=== PATIENT | female | born 1975 | race Caucasian/White ===

== ENCOUNTER 2017-02-08 08:16 | Inpatient (IN) | payer MEDICAID, OTHER ==
[~2017-02-08] VITALS: Ht 154.9 cm; Wt 105.2 kg
[2017-02-08] MEDS ORDERED: ONDANSETRON HCL 4MG/2ML VIAL IV STA (08:37)
[2017-02-08] MEDS ORDERED: FAMOTIDINE 20MG/2ML VIAL IV STA (08:37)
[2017-02-08] MEDS ORDERED: MORPHINE SULFATE 4 MG/ML CPJ (NOT FOR IM USE) IV STA (08:37)
[2017-02-08] MEDS ORDERED: SODIUM CHLORIDE 0.9% 1,000 ML IV ONE ×2 (08:37→10:47)
[2017-02-08 09:22] LABS: INR 1.1; PARTIAL THROMBOPLASTIN TIME 20.5 sec (23.4-31.0); PROTHROMBIN TIME 11.6 sec (9.4-11.6)
[2017-02-08 09:25] LABS: BASOPHILS % 0.3 % (0.0-2.0); EOSINOPHILS % 0.2 % (0.0-5.0); HCG SCREEN NEGATIVE; LYMPHOCYTES % 15.5 % (20.0-50.0); MEAN CORPUSCULAR HEMOGLOBIN 29.9 pg (28.0-32.0); MEAN CORPUSCULAR VOLUME 90.3 fL (81.0-99.0); MEAN PLATELET VOLUME 9.2 fl (7.4-10.4); MONOCYTES % 4.4 % (2.0-8.0); NEUTROPHILS % 79.6 % (40.0-76.0); PLATELET 270 x1000/uL (130-400); RED BLOOD CELL COUNT 2.32 mill/uL (4.2-5.4); RED CELL DISTRIBUTION WIDTH 14.5 % (11.6-14.6)
[2017-02-08 09:28] LABS: CARBON DIOXIDE 26 mEq/L (21-32); CHLORIDE 107 mEq/L (98-107); TROPONIN I 0.03 ng/mL (0.00-0.04)
[2017-02-08 09:36] LABS: HEMATOCRIT. 20.9 % (36.0-48.0); HEMOGLOBIN. 6.9 g/dL (12.0-16.0)
[2017-02-08] MEDS ORDERED: PANTOPRAZOLE 80 MG in SODIUM CHLORIDE 0.9% 100 ML IV SCH (11:00)
[2017-02-08] MEDS ORDERED: PANTOPRAZOLE SODIUM 40 MG/VIAL IV ONE (11:00)
[2017-02-08] MEDS: PANTOPRAZOLE 80 MG in SODIUM CHLORIDE 0.9% 100 ML IV SCH ×2 (12:25→19:50)
[2017-02-08] MEDS ORDERED: SIMETHICONE 40 MG/0.6 ML 30ML ONE (14:01)
[2017-02-08] MEDS ORDERED: SODIUM CHLORIDE 0.9% 10ML VIAL ONE (14:01)
[2017-02-08] MEDS ORDERED: FENTANYL CITRATE/PF 50MCG/ML 2ML VIAL ONE (15:36)
[2017-02-08] MEDS ORDERED: MIDAZOLAM HCL 5 MG/5 ML VIAL ONE (15:36)
[2017-02-08] MEDS ORDERED: MIDAZOLAM HCL 2 MG/2 ML VIAL IV PRN (15:52)
[2017-02-08] MEDS ORDERED: FENTANYL CITRATE/PF 50MCG/ML 2ML VIAL IV PRN (15:52)
[2017-02-08] MEDS ORDERED: SODIUM CHLORIDE 0.9% 1,000 ML IV SCH (18:29)
[2017-02-08] MEDS ORDERED: DIPHENHYDRAMINE 50MG/ML VIAL IV PRN (18:30)
[2017-02-08] MEDS ORDERED: DEXT 5%/0.45% NACL 500ML 1,000 ML IV SCH (19:30)
[2017-02-08 20:14] VITALS: BP 110/63
[2017-02-08 21:00] VITALS: BP_SYST 106; BP_SYST 110; BP_DIAS 56; BP_DIAS 63
[2017-02-08] MEDS: PANTOPRAZOLE SODIUM 40 MG/VIAL IV SCH (21:32)
[2017-02-08] MEDS: MORPHINE SULFATE 4 MG/ML CPJ (NOT FOR IM USE) IV PRN (21:32)
[2017-02-08 22:00] VITALS: BP 105/54
[2017-02-08 23:00] VITALS: BP 92/49
[2017-02-08 23:15] LABS: MEAN CORPUSCULAR HEMOGLOBIN 30.8 pg (28.0-32.0); MEAN CORPUSCULAR VOLUME 94.5 fL (81.0-99.0); PLATELET 120 x1000/uL (130-400); RED BLOOD CELL COUNT 2.06 mill/uL (4.2-5.4); RED CELL DISTRIBUTION WIDTH 14.7 % (11.6-14.6)
[2017-02-08 23:19] LABS: HEMATOCRIT 19.5 % (36.0-48.0); HEMOGLOBIN 6.4 g/dL (12.0-16.0)
[2017-02-09] VITALS (27 sets, daily range): BP systolic 90–118; BP diastolic 48–76
[2017-02-09 05:57] LABS: BASOPHILS % 0.3 % (0.0-2.0); EOSINOPHILS % 0.9 % (0.0-5.0); HEMATOCRIT. 26.8 % (36.0-48.0); HEMOGLOBIN. 9.1 g/dL (12.0-16.0); LYMPHOCYTES % 30.7 % (20.0-50.0); MEAN CORPUSCULAR HEMOGLOBIN 30.1 pg (28.0-32.0); MEAN CORPUSCULAR VOLUME 88.6 fL (81.0-99.0); MONOCYTES % 5.5 % (2.0-8.0); NEUTROPHILS % 62.6 % (40.0-76.0); PLATELET 147 x1000/uL (130-400); RED BLOOD CELL COUNT 3.02 mill/uL (4.2-5.4); RED CELL DISTRIBUTION WIDTH 14.1 % (11.6-14.6)
[2017-02-09 07:01] LABS: CARBON DIOXIDE 25 mEq/L (21-32); CHLORIDE 112 mEq/L (98-107)
[2017-02-09] MEDS ORDERED: PANTOPRAZOLE SODIUM 40 MG/VIAL IV SCH (09:00)
[2017-02-09] MEDS: PANTOPRAZOLE SODIUM 40 MG/VIAL IV SCH ×2 (09:51→21:04)
[2017-02-09] MEDS: DEXT 5%/0.45% NACL 1000ML 1,000 ML IV SCH ×2 (10:11→21:05)
[2017-02-09] MEDS: MORPHINE SULFATE 4 MG/ML CPJ (NOT FOR IM USE) IV PRN ×2 (10:33→22:34)
[2017-02-09] MEDS ORDERED: SIMETHICONE 40 MG/0.6 ML 30ML ONE (12:53)
[2017-02-09] MEDS ORDERED: SODIUM CHLORIDE 0.9% 10ML VIAL ONE (12:53)
[2017-02-09] MEDS ORDERED: MIDAZOLAM HCL 5 MG/5 ML VIAL ONE ×2 (13:47→13:48)
[2017-02-09] MEDS ORDERED: FENTANYL CITRATE/PF 50MCG/ML 2ML VIAL ONE (13:48)
[2017-02-09] MEDS ORDERED: MIDAZOLAM HCL 2 MG/2 ML VIAL IV ONE (14:06)
[2017-02-09] MEDS ORDERED: FENTANYL CITRATE/PF 50MCG/ML 2ML VIAL IV ONE (14:07)
[2017-02-09] MEDS ORDERED: OCTREOTIDE ACETATE 100 MCG/ML 1ML IV NR (16:45)
[2017-02-09 17:20] LABS: HEMATOCRIT 21.4 % (36.0-48.0)
[2017-02-09] MEDS ORDERED: OCTREOTIDE ACETATE 50 MCG/ML 1ML IV NR (17:26)
[2017-02-09 17:29] LABS: HEMOGLOBIN 6.9 g/dL (12.0-16.0)
[2017-02-09] MEDS: OCTREOTIDE 1,000 MCG in SODIUM CHLORIDE 0.9% 98 ML IV PRN (17:36)
[2017-02-09 23:12] LABS: HEMATOCRIT 30.7 % (36.0-48.0); HEMOGLOBIN 10.5 g/dL (12.0-16.0)
[2017-02-10] VITALS: BP 104/66
[2017-02-10 04:00] VITALS: BP 99/49
[2017-02-10] MEDS: DEXT 5%/0.45% NACL 1000ML 1,000 ML IV SCH ×2 (06:27→16:26)
[2017-02-10 07:15] LABS: BASOPHILS % 0.6 % (0.0-2.0); EOSINOPHILS % 2.6 % (0.0-5.0); HEMOGLOBIN. 10.3 g/dL (12.0-16.0); LYMPHOCYTES % 30.6 % (20.0-50.0); MEAN CORPUSCULAR HEMOGLOBIN 30.3 pg (28.0-32.0); MEAN CORPUSCULAR VOLUME 88.6 fL (81.0-99.0); MEAN PLATELET VOLUME 8.7 fl (7.4-10.4); MONOCYTES % 7.7 % (2.0-8.0); NEUTROPHILS % 58.5 % (40.0-76.0); PLATELET 144 x1000/uL (130-400); RED BLOOD CELL COUNT 3.38 mill/uL (4.2-5.4); RED CELL DISTRIBUTION WIDTH 14.7 % (11.6-14.6)
[2017-02-10 07:19] LABS: INR 1.1; PARTIAL THROMBOPLASTIN TIME 22.2 sec (23.4-31.0); PROTHROMBIN TIME 10.9 sec (9.4-11.6)
[2017-02-10 07:57] VITALS: BP 98/62
[2017-02-10 08:03] LABS: CARBON DIOXIDE 27 mEq/L (21-32); CHLORIDE 106 mEq/L (98-107)
[2017-02-10 08:06] LABS: HEPATITIS B SURFACE ANTIGEN NEGATIVE
[2017-02-10 08:34] LABS: HEPATITIS B CORE AB IGM NEGATIVE
[2017-02-10 08:36] LABS: HEPATITIS A AB IGM NEGATIVE (NEGATIVE)
[2017-02-10] MEDS: PANTOPRAZOLE SODIUM 40 MG/VIAL IV SCH ×3 (09:29→21:29)
[2017-02-10 12:00] VITALS: BP 101/67
[2017-02-10] MEDS: MORPHINE SULFATE 4 MG/ML CPJ (NOT FOR IM USE) IV PRN ×2 (12:18→21:06)
[2017-02-10 16:00] VITALS: BP 122/63
[2017-02-10 20:00] VITALS: BP 114/61
[2017-02-11] VITALS: BP 109/70
[2017-02-11 04:00] VITALS: BP 113/53
[2017-02-11] MEDS: DEXT 5%/0.45% NACL 1000ML 1,000 ML IV SCH ×3 (06:50→22:00)
[2017-02-11 08:03] VITALS: BP 124/67
[2017-02-11] MEDS: PANTOPRAZOLE SODIUM 40 MG/VIAL IV SCH ×2 (08:56→22:26)
[2017-02-11 11:55] VITALS: BP 115/76
[2017-02-11] MEDS: ONDANSETRON HCL 4MG/2ML VIAL IV PRN (12:52)
[2017-02-11 16:00] VITALS: BP 121/72
[2017-02-11 20:00] VITALS: BP 129/53
[2017-02-11] MEDS: MORPHINE SULFATE 4 MG/ML CPJ (NOT FOR IM USE) IV PRN (22:19)
[2017-02-12] VITALS (43 sets, daily range): BP systolic 79–115; BP diastolic 47–79
[2017-02-12] MEDS: ONDANSETRON HCL 4MG/2ML VIAL IV PRN (01:03)
[2017-02-12] MEDS ORDERED: ONDANSETRON HCL 4MG/2ML VIAL IV SCH (01:45)
[2017-02-12] MEDS: OCTREOTIDE 1,000 MCG in SODIUM CHLORIDE 0.9% 98 ML IV PRN (03:53)
[2017-02-12] MEDS: DEXT 5%/0.45% NACL 1000ML 1,000 ML IV SCH ×2 (04:31→18:33)
[2017-02-12 06:01] LABS: HEMATOCRIT 25.3 % (36.0-48.0); HEMOGLOBIN 8.5 g/dL (12.0-16.0); MEAN CORPUSCULAR HEMOGLOBIN 30.2 pg (28.0-32.0); MEAN CORPUSCULAR VOLUME 89.5 fL (81.0-99.0); PLATELET 188 x1000/uL (130-400); RED BLOOD CELL COUNT 2.83 mill/uL (4.2-5.4); RED CELL DISTRIBUTION WIDTH 14.5 % (11.6-14.6)
[2017-02-12] MEDS: PANTOPRAZOLE SODIUM 40 MG/VIAL IV SCH ×2 (08:30→20:56)
[2017-02-12 16:47] LABS: HEMATOCRIT 28.6 % (36.0-48.0); HEMOGLOBIN 9.7 g/dL (12.0-16.0)
[2017-02-13] VITALS (31 sets, daily range): BP systolic 92–125; BP diastolic 43–86
[2017-02-13] MEDS ORDERED: OCTREOTIDE ACETATE 50 MCG/ML 1ML IV SCH (02:00)
[2017-02-13] MEDS: DEXT 5%/0.45% NACL 1000ML 1,000 ML IV SCH ×3 (05:04→23:33)
[2017-02-13 06:14] LABS: BASOPHILS % 0.5 % (0.0-2.0); EOSINOPHILS % 2.7 % (0.0-5.0); HEMATOCRIT. 25.8 % (36.0-48.0); HEMOGLOBIN. 8.7 g/dL (12.0-16.0); LYMPHOCYTES % 36.2 % (20.0-50.0); MEAN CORPUSCULAR HEMOGLOBIN 30.8 pg (28.0-32.0); MEAN CORPUSCULAR VOLUME 91.3 fL (81.0-99.0); MEAN PLATELET VOLUME 9.3 fl (7.4-10.4); NEUTROPHILS % 53.6 % (40.0-76.0); PLATELET 147 x1000/uL (130-400); RED BLOOD CELL COUNT 2.82 mill/uL (4.2-5.4); RED CELL DISTRIBUTION WIDTH 14.9 % (11.6-14.6)
[2017-02-13 06:18] LABS: INR 1.1; PARTIAL THROMBOPLASTIN TIME 22.9 sec (23.4-31.0); PROTHROMBIN TIME 11.4 sec (9.4-11.6)
[2017-02-13 06:34] LABS: CARBON DIOXIDE 25 mEq/L (21-32); CHLORIDE 108 mEq/L (98-107)
[2017-02-13] MEDS: OCTREOTIDE 1,000 MCG in SODIUM CHLORIDE 0.9% 98 ML IV PRN ×2 (07:00→17:57)
[2017-02-13] MEDS: PANTOPRAZOLE SODIUM 40 MG/VIAL IV SCH (10:11)
[2017-02-13] MEDS: PANTOPRAZOLE 40MG DR TABLET PO SCH (19:58)
[2017-02-13] MEDS: ONDANSETRON HCL 4MG/2ML VIAL IV PRN (19:58)
[2017-02-14] VITALS (72 sets, daily range): BP systolic 71–149; BP diastolic 36–101
[2017-02-14 06:03] LABS: BASOPHILS % 0.6 % (0.0-2.0); EOSINOPHILS % 3.8 % (0.0-5.0); HEMOGLOBIN. 8.2 g/dL (12.0-16.0); LYMPHOCYTES % 34.6 % (20.0-50.0); MEAN CORPUSCULAR HEMOGLOBIN 30.5 pg (28.0-32.0); MEAN CORPUSCULAR VOLUME 88.9 fL (81.0-99.0); MEAN PLATELET VOLUME 9.3 fl (7.4-10.4); MONOCYTES % 7.3 % (2.0-8.0); NEUTROPHILS % 53.7 % (40.0-76.0); PLATELET 157 x1000/uL (130-400); RED CELL DISTRIBUTION WIDTH 14.6 % (11.6-14.6)
[2017-02-14] MEDS: PANTOPRAZOLE 40MG DR TABLET PO SCH ×2 (06:51→20:47)
[2017-02-14] MEDS ORDERED: PROPRANOLOL HCL 10MG TABLET PO SCH (09:00)
[2017-02-14] MEDS: DEXT 5%/0.45% NACL 1000ML 1,000 ML IV SCH ×2 (10:15→20:47)
[2017-02-14] MEDS: ONDANSETRON HCL 4MG/2ML VIAL IV PRN (12:24)
[2017-02-14] MEDS ORDERED: OCTREOTIDE 1,000 MCG in SODIUM CHLORIDE 0.9% 98 ML IV PRN (12:30)
[2017-02-14] MEDS ORDERED: SODIUM CHLORIDE 0.9% 10ML VIAL ONE (13:53)
[2017-02-14] MEDS ORDERED: SIMETHICONE 40 MG/0.6 ML 30ML ONE (13:53)
[2017-02-14] MEDS ORDERED: SODIUM CHLORIDE 0.9% 1,000 ML IV ONE (14:45)
[2017-02-14 14:58] LABS: HEMOGLOBIN 6.6 g/dL (12.0-16.0)
[2017-02-14 14:59] LABS: HEMATOCRIT 19.8 % (36.0-48.0)
[2017-02-14] MEDS: OCTREOTIDE 1,000 MCG in SODIUM CHLORIDE 0.9% 98 ML IV PRN (16:00)
[2017-02-14] MEDS ORDERED: FENTANYL CITRATE/PF 50MCG/ML 2ML VIAL ONE (18:34)
[2017-02-14] MEDS ORDERED: MIDAZOLAM HCL 5 MG/5 ML VIAL ONE (18:34)
[2017-02-14] MEDS ORDERED: FENTANYL CITRATE/PF 50MCG/ML 2ML VIAL IV PRN (18:40)
[2017-02-14] MEDS ORDERED: MIDAZOLAM HCL 5 MG/5 ML VIAL IV PRN (18:40)
[2017-02-14 22:36] LABS: HEMATOCRIT 26.9 % (36.0-48.0); HEMOGLOBIN 9.3 g/dL (12.0-16.0)
[2017-02-15] VITALS (109 sets, daily range): BP systolic 44–162; BP diastolic 24–132
[2017-02-15] MEDS: DEXT 5%/0.45% NACL 1000ML 1,000 ML IV SCH ×2 (05:47→11:39)
[2017-02-15] MEDS: PANTOPRAZOLE 40MG DR TABLET PO SCH (05:48)
[2017-02-15 06:19] LABS: BASOPHILS % 0.5 % (0.0-2.0); EOSINOPHILS % 1.9 % (0.0-5.0); HEMATOCRIT. 26.2 % (36.0-48.0); MEAN CORPUSCULAR VOLUME 89.8 fL (81.0-99.0); MEAN PLATELET VOLUME 9.2 fl (7.4-10.4); MONOCYTES % 6.5 % (2.0-8.0); NEUTROPHILS % 63.1 % (40.0-76.0); PLATELET 147 x1000/uL (130-400); RED BLOOD CELL COUNT 2.92 mill/uL (4.2-5.4); RED CELL DISTRIBUTION WIDTH 14.3 % (11.6-14.6)
[2017-02-15] MEDS: ONDANSETRON HCL 4MG/2ML VIAL IV PRN (10:01)
[2017-02-15] MEDS ORDERED: EPINEPHRINE 0.1MG/ML (1:10,000) 10ML SYR ONE (12:25)
[2017-02-15] MEDS: OCTREOTIDE 1,000 MCG in SODIUM CHLORIDE 0.9% 98 ML IV PRN (13:27)
[2017-02-15] MEDS ORDERED: LORAZEPAM 2MG/ML CPJ IV PRN (15:00)
[2017-02-15] MEDS ORDERED: LORAZEPAM 2MG/ML CPJ ONE (15:12)
[2017-02-15] MEDS ORDERED: FENTANYL CITRATE/PF 500 MCG in SODIUM CHLORIDE 0.9% 40 ML IV PRN (16:00)
[2017-02-15] MEDS: VASOPRESSIN 10 UNIT in SODIUM CHLORIDE 0.9% 99.5 ML IV PRN (16:22)
[2017-02-15 16:26] LABS: BASOPHILS % 0.4 % (0.0-2.0); EOSINOPHILS % 1.3 % (0.0-5.0); LYMPHOCYTES % 35.3 % (20.0-50.0); MEAN CORPUSCULAR HEMOGLOBIN 30.8 pg (28.0-32.0); MEAN CORPUSCULAR VOLUME 94.7 fL (81.0-99.0); MEAN PLATELET VOLUME 9.4 fl (7.4-10.4); MONOCYTES % 3.2 % (2.0-8.0); NEUTROPHILS % 59.8 % (40.0-76.0); PLATELET 175 x1000/uL (130-400); RED BLOOD CELL COUNT 1.94 mill/uL (4.2-5.4); RED CELL DISTRIBUTION WIDTH 14.5 % (11.6-14.6)
[2017-02-15 16:27] LABS: CHLORIDE 113 mEq/L (98-107)
[2017-02-15 16:28] LABS: INR 1.3; PARTIAL THROMBOPLASTIN TIME 23.2 sec (23.4-31.0)
[2017-02-15] MEDS ORDERED: MIDAZOLAM HCL 50 MG in DEXTROSE 5% WATER 40 ML IV PRN (16:30)
[2017-02-15] MEDS: PANTOPRAZOLE SODIUM 40 MG/VIAL IV SCH (16:30)
[2017-02-15 16:32] LABS: CARBON DIOXIDE 19 mEq/L (21-32)
[2017-02-15 16:34] LABS: HEMATOCRIT. 18.3 % (36.0-48.0)
[2017-02-15] MEDS: IPRATROPIUM/ALBUTEROL 0.5-3(2.5)MG/3ML NEB HHN SCH ×2 (16:54→22:11)
[2017-02-15] MEDS ORDERED: LORAZEPAM 2MG/ML CPJ IV NR (17:09)
[2017-02-15] MEDS: PHENYLEPHRINE 20 MG in DEXT 5% WATER 248 ML IV PRN ×2 (17:13→20:11)
[2017-02-15 17:30] LABS: BG BASE EXCESS -3.3 mmol/L (-2.0-2.0); BG CARBOXYHEMOGLOBIN 0.3 % (0.5-1.5); BG DEOXYHEMOGLOBIN 0.8 % (0.0-5.0); BG FRACTION INSPIRED OXYGEN 100; BG HCO3 ACT 20.8 mmol/L (22.0-26.0); BG METHEMOGLOBIN 0.6 % (0.0-1.5); BG OXYGEN SATURATION 99.2 % (92.0-98.5); BG OXYHEMOGLOBIN 98.3 % (94.0-97.0); BG PCO2 33.3 mmHg (35.0-45.0); BG PH 7.413 (7.350-7.450); BG PO2 399.9 mmHg (75.0-100.0); BG SAMPLE SITE LEFT RADIAL; BG TIDAL VOLUME(mL) 550 mL; BG TOTAL HEMOGLOBIN 8.4 g/dL (12.0-18.0); BG VENT MODE VENT - A/C; BG VENT RATE 12 set
[2017-02-15] MEDS ORDERED: MAGNESIUM 2 G PREMIX 50 ML IV NR (18:30)
[2017-02-15] MEDS: PIPERACILLIN/TAZ 3.375G PREMIX 50 ML IV SCH (18:46)
[2017-02-15] MEDS: NOREPINEPHRINE 32 MG in DEXT 5% WATER 468 ML IV PRN (20:11)
[2017-02-15] MEDS: PHENYLEPHRINE 20 MG in DEXT 5% WATER 498 ML IV PRN (22:17)
[2017-02-15 22:37] LABS: HEMATOCRIT 17.7 % (36.0-48.0); HEMOGLOBIN 5.4 g/dL (12.0-16.0)
[2017-02-16] VITALS (42 sets, daily range): BP systolic 35–237; BP diastolic 19–158
[2017-02-16] MEDS: VASOPRESSIN 10 UNIT in SODIUM CHLORIDE 0.9% 99.5 ML IV PRN ×2 (00:19→04:59)
[2017-02-16] MEDS: PIPERACILLIN/TAZ 3.375G PREMIX 50 ML IV SCH ×2 (02:00→10:00)
[2017-02-16] MEDS: IPRATROPIUM/ALBUTEROL 0.5-3(2.5)MG/3ML NEB HHN SCH ×2 (02:00→09:08)
[2017-02-16] MEDS: DEXT 5%/0.45% NACL 1000ML 1,000 ML IV SCH (02:15)
[2017-02-16] MEDS: PHENYLEPHRINE 20 MG in DEXT 5% WATER 498 ML IV PRN (02:18)
[2017-02-16 05:57] LABS: HEMOGLOBIN 8.9 g/dL (12.0-16.0); MEAN CORPUSCULAR HEMOGLOBIN 30.3 pg (28.0-32.0); MEAN CORPUSCULAR VOLUME 92.1 fL (81.0-99.0); RED BLOOD CELL COUNT 2.93 mill/uL (4.2-5.4); RED CELL DISTRIBUTION WIDTH 14.3 % (11.6-14.6)
[2017-02-16] MEDS ORDERED: SUCCINYLCHOLINE CHLORIDE 200MG/10ML VIAL IV ONE (06:00)
[2017-02-16] MEDS ORDERED: ETOMIDATE 2MG/ML 10ML VIAL IV ONE (06:00)
[2017-02-16 07:03] LABS: INR 2.9; PROTHROMBIN TIME 29.6 sec (9.4-11.6)
[2017-02-16] MEDS: NOREPINEPHRINE 32 MG in DEXT 5% WATER 468 ML IV PRN (07:37)
[2017-02-16 07:45] LABS: HEMOGLOBIN 4.8 g/dL (12.0-16.0)
[2017-02-16 07:46] LABS: HEMATOCRIT 16.8 % (36.0-48.0)
[2017-02-16 07:57] LABS: CHLORIDE 116 mEq/L (98-107)
[2017-02-16 08:02] LABS: CARBON DIOXIDE 8 mEq/L (21-32)
[2017-02-16 08:16] LABS: PARTIAL THROMBOPLASTIN TIME 89.9 sec (23.4-31.0)
[2017-02-16] MEDS: PANTOPRAZOLE SODIUM 40 MG/VIAL IV SCH (09:00)
== END 2017-02-16 10:35 | disposition expired | DRG 720 ==
LOC: ER 08:16 → ENRESERV 10:02 → CANRESERV 10:02 → 5EST 13:43 → CVICU 13:43 → UNDOADMIN 13:43 → EDBEDREQSVC 13:44 → EDBEDREQ 13:44 → ENRESERV 13:54 → 6WST 02-09 20:10 → MICUSO 02-12 01:52
PROVIDERS: ADMIT Internal Medicine; ATTEND Internal Medicine
PROC: 5A12012 Performance of Cardiac Output, Single, Manual (ICD-10-PCS; 2017-02-08)
PROC: 5A1945Z Respiratory Ventilation, 24-96 Consecutive Hours (ICD-10-PCS; 2017-02-08)
PROC: 30233N1 Transfusion of Nonautologous Red Blood Cells into Peripheral Vein, Percutaneous Approach (ICD-10-PCS; 2017-02-08)
PROC: 30233K1 Transfusion of Nonautologous Frozen Plasma into Peripheral Vein, Percutaneous Approach (ICD-10-PCS; 2017-02-08)
PROC: 0BH18EZ Insertion of Endotracheal Airway into Trachea, Via Natural or Artificial Opening Endoscopic (ICD-10-PCS; 2017-02-08)
PROC: 0DJ08ZZ Inspection of Upper Intestinal Tract, Via Natural or Artificial Opening Endoscopic (ICD-10-PCS; 2017-02-08)
PROC: 30233L1 Transfusion of Nonautologous Fresh Plasma into Peripheral Vein, Percutaneous Approach (ICD-10-PCS; principal; 2017-02-08 16:00)
PROC: 0DB68ZX Excision of Stomach, Via Natural or Artificial Opening Endoscopic, Diagnostic (ICD-10-PCS; 2017-02-09)
PROC: 0DJ08ZZ Inspection of Upper Intestinal Tract, Via Natural or Artificial Opening Endoscopic (ICD-10-PCS; 2017-02-14)
PROC: 02HV33Z Insertion of Infusion Device into Superior Vena Cava, Percutaneous Approach (ICD-10-PCS; 2017-02-14)
DX: A41.9 Sepsis, unspecified organism (principal); D65 Disseminated intravascular coagulation [defibrination syndrome]; I46.9 Cardiac arrest, cause unspecified; J96.00 Acute respiratory failure, unspecified whether with hypoxia or hypercapnia; K72.00 Acute and subacute hepatic failure without coma; J69.0 Pneumonitis due to inhalation of food and vomit; D62 Acute posthemorrhagic anemia; E87.2 Acidosis; K25.6 Chronic or unspecified gastric ulcer with both hemorrhage and perforation; R57.1 Hypovolemic shock; K25.4 Chronic or unspecified gastric ulcer with hemorrhage; R65.21 Severe sepsis with septic shock; I86.4 Gastric varices; K74.60 Unspecified cirrhosis of liver; N39.0 Urinary tract infection, site not specified; K80.20 Calculus of gallbladder without cholecystitis without obstruction; K76.0 Fatty (change of) liver, not elsewhere classified; Z82.49 Family history of ischemic heart disease and other diseases of the circulatory system; Z87.11 Personal history of peptic ulcer disease; G51.0 Bell's palsy; K92.1 Melena; R79.89 Other specified abnormal findings of blood chemistry; E66.9 Obesity, unspecified; Z66 Do not resuscitate; Z68.41 Body mass index [BMI] 40.0-44.9, adult
CPT/HCPCS: 36415; 36569; 36600; 71010; 74176; 76700; 76937; 80048; 80053; 80076; 82105; 82270; 82375; 82805; 82962; 83690; 83735; 84484; 84703; 85014; 85018; 85025; 85027; 85044; 85610; 85730; 86705; 86709; 86803; 86850; 86900; 86920; 86927; 87077; 87086; 87186; 87340; 88305; 88313; 93005; 94002; 94003; 94640; 94664; 96361; 96374; 96375; 99285; A4216; C1725; C9113; J0171; J0330; J2060; J2250; J2270; J2354; J2370; J2405; J2543; J3010; J3475; J3490; J7030; J7040; J7050; J7060; J7070; J7620; P9016; P9017; A4315